=== PATIENT | male | born 1955 | race Caucasian/White ===

== ENCOUNTER 2017-04-20 17:51 | Emergency (ER) | payer OTHER, MEDICAID ==
[~2017-04-20] VITALS: Ht 170.2 cm; Wt 77.1 kg
[~2017-04-20 17:51] MED LIST: ACET-2165 PO; CALC-939 PO; DIVA250T PO; DOCU250C PO; GUAI100S14 PO; GUAR1PAC4 PO; LACT10SO66 PO; LAM100 PO; LEVO330T2 PO; METR45GE TP; MULT PO; OSEL75CA PO; SIMV20TA6 PO
[2017-04-20 18:15] VITALS: BP_SYST 128
--- NOTE | 2017-04-20 18:30 | NUR ---
Patient to ER bed 04 to gown for evaluation. Side rails up. Report given to JOSE CUADRA
--- NOTE | 2017-04-20 18:40 | NUR ---
Pt bib caregiver reports pt has not urinated since last evening. Pt is mentally challenged and has limitation on expressing needs,however pt reports not peeing today. Pt has distended abd and pain with palpation.
--- NOTE | 2017-04-20 18:42 | NUR ---
ER at bedside examining patient.
--- NOTE | 2017-04-20 18:50 | NUR ---
# 16 FR Pickens catheter coude with use of sterile technique. Immediate return of 200 cc cloudy urine noted. Bedside drainage bag placed below level of bladder. Urine sample collected and sent to lab. Pt tolerated procedure well. Patient arrived with pickens in place, changed due to standard of practice prior to admission. Patient unable to toilet self.
--- NOTE | 2017-04-20 18:55 | NUR ---
Urine specimen sent
--- NOTE | 2017-04-20 19:05 | NUR ---
Pt endorsed to Karen GARCIA
[2017-04-20 19:36] LABS: BILIRUBIN,URINE NEGATIVE (NEGATIVE); BLOOD, URINE 2+ (NEGATIVE); CLARITY/URINE CLOUDY (CLEAR); COLOR,URINE YELLOW (YELLOW); GLUCOSE,URINE NEGATIVE (NEGATIVE); KETONES,URINE NEGATIVE (NEGATIVE); LEUKOCYTE ESTERASE ,URINE 2+ (NEGATIVE); NITRITE, URINE NEGATIVE (NEGATIVE); PROTEIN URINE 2+ (NEGATIVE)
[2017-04-20 19:50] LABS: BACTERIA,URINE MODERATE /HPF (None Seen); MUCUS,URINE None Seen /LPF (None Seen); WBC,URINE >100 /HPF (0-3)
[2017-04-20 20:20] VITALS: BP_SYST 128
--- NOTE | 2017-04-20 20:59 | NUR ---
Patient and pt's caregiver given written and verbal discharge instructions and verbalizes understanding. ER MD discussed with patient and pt's caregiver the results and treatment provided. Patient in stable condition. ID arm band removed. Rx of Macrobid given. Patient educated on pain management and to follow up with PMD. Pain Scale 2/10 tolerable for pt . Opportunity for questions provided and answered.
[2017-04-21] MEDS ORDERED: ACET325T53 PO (12:28)
[2017-04-21] MEDS ORDERED: LEVO330T2 PO (12:28)
[2017-04-21] MEDS ORDERED: MULT1CAP34 PO (12:28)
[2017-04-21] MEDS ORDERED: GUAR1PAC4 PO (12:41)
[2017-04-21] MEDS ORDERED: CALC-939 PO (12:41)
[2017-04-21] MEDS ORDERED: LAMO200T2 PO (12:41)
[2017-04-21] MEDS ORDERED: NITR-85 PO (12:41)
[2017-04-21] MEDS ORDERED: DIVA250T34 PO ×2 (12:41)
== END 2017-04-20 20:20 | disposition home or self-care (01) ==
LOC: SED 17:51
DX: R33.9 Retention of urine, unspecified (principal); N39.0 Urinary tract infection, site not specified; M81.0 Age-related osteoporosis without current pathological fracture; F99 Mental disorder, not otherwise specified; Z88.6 Allergy status to analgesic agent; Z79.899 Other long term (current) drug therapy
CPT/HCPCS: 81000-TC; 87086; 87186-TC; 99284

== ENCOUNTER 2018-02-20 09:48 | Emergency (ER) | payer OTHER, MEDICAID ==
[~2018-02-20] VITALS: Ht 177.8 cm; Wt 90.7 kg
[~2018-02-20 09:48] MED LIST changes: +ACET325T53 PO; -DIVA250T PO; +DIVA250T34 PO; -DOCU250C PO; +DOCU250C14 PO; -LAM100 PO; +LAMO200T2 PO; +MULT1CAP34 PO; +NITR-85 PO; -OSEL75CA PO
[2018-02-20 09:52] VITALS: BP_SYST 121
--- NOTE | 2018-02-20 09:52 | NUR ---
Pt wheeled to bed 8
--- NOTE | 2018-02-20 10:28 | NUR ---
ER at bedside examining patient.
[2018-02-20] MEDS ORDERED: CEPHALEXIN 500 MG CAPSULE PO ONE (11:30)
[2018-02-20] MEDS ORDERED: ACETAMINOPHEN 500 MG TABLET PO ONE (11:30)
--- NOTE | 2018-02-20 12:04 | NUR ---
MEDICATED WITH KEFLEX 500 MG AND TYLENOL EXTRA STRENGTH FOR HEADACHE ORDERED.
--- NOTE | 2018-02-20 12:30 | NUR ---
Patient given written and verbal discharge instructions and verbalizes understanding. ER MD GARCIA discussed with patient the results and treatment provided. Patient in stable condition. ID arm band removed. Rx of KEFLEX 500MG, POLYTRIM EYE DROPS given. Patient educated on pain management and to follow up with PMD. Pain Scale 2. Opportunity for questions provided and answered. Medication side effect fact sheet provided.
== END 2018-02-20 12:23 | disposition home or self-care (01) ==
LOC: SED 09:48
DX: H00.036 Abscess of eyelid left eye, unspecified eyelid (principal); H01.006 Unspecified blepharitis left eye, unspecified eyelid; R03.0 Elevated blood-pressure reading, without diagnosis of hypertension; Z88.6 Allergy status to analgesic agent; Z88.8 Allergy status to other drugs, medicaments and biological substances; Z79.899 Other long term (current) drug therapy
CPT/HCPCS: 99283

== ENCOUNTER 2022-05-29 23:05 | Emergency (ER) | payer OTHER, MEDICAID ==
[~2022-05-29] VITALS: Ht 177.8 cm; Wt 90.7 kg
[2022-05-29 23:05] VITALS: BP_SYST 126
[~2022-05-29 23:05] MED LIST changes: -ACET-2165 PO; +ACET325T PO; +SIMV-43 PO; -SIMV20TA6 PO
[2022-05-29 23:48] LABS: BASOPHILS % (AUTO) 0.5 % (0.0-2.0); EOSINOPHILS # (AUTO) 0.1 K/uL (0.0-0.4); HEMATOCRIT 40.2 % (36-54); HEMOGLOBIN 13.2 g/dL (14.0-18.0); LYMPHOCYTES # (AUTO) 2.2 K/uL (1.0-5.5); LYMPHOCYTES % (AUTO) 42.2 % (20.5-51.5); MEAN CORPUSCULAR HEMOGLOBIN 34 pg (27-31); MEAN CORPUSCULAR HGB CONC 33 % (32-36); MEAN CORPUSCULAR VOLUME 103 fL (79.0-98.0); MONOCYTES # (AUTO) 0.7 K/uL (0.0-1.0); MONOCYTES % (AUTO) 14.1 % (1.7-9.3); NEUTROPHILS # (AUTO) 2.2 K/uL (1.8-7.7); NEUTROPHILS % (AUTO) 41.2 % (40.0-70.0); PLATELET COUNT (AUTO) 144 K/uL (130-430); RED BLOOD CELL COUNT(AUTO) 3.89 MIL/uL (4.2-6.2); RED CELL DISTRIBUTION WIDTH 13.1 % (9.0-15.0); WHITE BLOOD COUNT (AUTO) 5.3 K/uL (4.8-10.8)
[2022-05-30 00:06] LABS: ANION GAP 8 (5-15); CALCIUM 9.7 mg/dL (8.4-11.0); CHLORIDE 106 mmol/L (98-107); CREATININE 0.85 mg/dL (0.55-1.30); GLUCOSE 107 mg/dL (70-99); UREA NITROGEN, BLOOD 23 mg/dL (8-21)
[2022-05-30 00:10] LABS: GFR AFRICAN AMERICAN 115 mL/min (>90)
[2022-05-30 00:21] LABS: ALANINE AMINOTRANSFERASE 18 U/L (12-78); ALBUMIN 3.9 g/dL (3.4-4.8); ASPARTATE AMINOTRANSFERASE 21 U/L (10-37); FREE T4 (FREE THYROXINE) 0.9 ng/dl (0.8-1.5); THYROID STIMULATING HORMONE 1.92 uIu/mL (0.36-3.74); TOTAL BILIRUBIN 0.2 mg/dL (0.0-1.0)
[2022-05-30 01:33] LABS: BILIRUBIN,URINE NEGATIVE (NEGATIVE); BLOOD, URINE 1+ (NEGATIVE); CLARITY/URINE CLEAR (CLEAR); COLOR,URINE YELLOW (YELLOW); GLUCOSE,URINE NEGATIVE (NEGATIVE); KETONES,URINE TRACE (NEGATIVE); LEUKOCYTE ESTERASE ,URINE NEGATIVE (NEGATIVE); NITRITE, URINE NEGATIVE (NEGATIVE); PH,URINE 6.5 (5.0-8.0); PROTEIN URINE NEGATIVE (NEGATIVE); UROBILINOGEN,URINE 0.2 (0.2-1.0)
[2022-05-30 01:40] LABS: BACTERIA,URINE None Seen /HPF (None Seen); WBC,URINE 0-3 /HPF (0-3)
[2022-05-30] MEDS ORDERED: NACL 0.9% 1,000 ML IV ONE (01:45)
[2022-05-30 03:32] VITALS: BP_SYST 148
== END 2022-05-30 03:31 | disposition home or self-care (01) ==
LOC: SED 23:05
DX: R53.1 Weakness (principal); E78.00 Pure hypercholesterolemia, unspecified; Z88.6 Allergy status to analgesic agent; Z88.8 Allergy status to other drugs, medicaments and biological substances; Z79.899 Other long term (current) drug therapy
CPT/HCPCS: 99284; 71045; 80053; 81000; 83880; 84439; 84443; 85025; 84484; 36415; 96360; J7030